=== PATIENT | male | born 1960 | race Caucasian/White ===

== ENCOUNTER 2021-10-13 11:04 | Emergency (ER) | payer MEDICARE, OTHER, SELFPAY ==
[2021-10-13 11:05] VITALS: BP 149/94; PULSE 109; RESP 27; TEMP 36.6; O2SAT 100; BMI 28.7
--- NOTE | 2021-10-13 11:10 | PC.NURSE ---
PATIENT SENT TO ER PER Nathan DYER APRN FOR FURTHER EVALUATION. REPORT GIVEN TO Nikia GONZALES RN BY Nathan DYER APRN
--- NOTE | 2021-10-13 11:25 | HMH.EDUTC ---
[facility] Disposition Clinical Impression: Gastroenteritis, Chest wall pain Disposition: Home, Self-Care Condition on Discharge: Good Instructions: DI for Viral Gastroenteritis -- Adult, DI for Atypical Chest Pain Additional Instructions: Additional instructions for VOMITING/DIARRHEA: See your physician as soon as possible for further evaluation. Return immediately if severe abdominal pain, uncontrollable vomiting, shortness of breath, fever, vomiting of blood or abdominal distention. Prescriptions: Ondansetron [Zofran 4mg ODT] 4 mg PO TIDP PRN #10 tab PRN Reason: Nausea And Vomiting Transmission Status: Received by [facility] Referrals: Jameel Bruce MD [Primary Care Provider] - Medical Decision Making - Dev Inquiry Pt receiving controlled substance: No Dev was queried for this patient: No Vital Signs: 10/13/21 11:05 10/13/21 12:30 10/13/21 13:00 Temperature 97.9 F Temperature Source Oral Pulse Rate 85 82 Pulse Rate [Right Brachial] 109 H Respiratory Rate 27 H 18 18 Blood Pressure 143/87 H 142/78 H Blood Pressure [Right Arm] 149/94 H Blood Pressure Mean 105 Blood Pressure Mean [Right Arm] 112 Blood Pressure Source Blood Pressure Source [Right Arm] Automatic Cuff Blood Pressure Position Blood Pressure Position [Right Arm] Sitting 02 Sat by Pulse Oximetry 100 98 100 Oxygen Delivery Method Room Air Room Air Room Air 10/13/21 14:10 Temperature 98.0 F Temperature Source Oral Pulse Rate 88 Pulse Rate [Right Brachial] Respiratory Rate 18 Blood Pressure 138/78 Blood Pressure [Right Arm] Blood Pressure Mean Blood Pressure Mean [Right Arm] Blood Pressure Source Automatic Cuff Blood Pressure Source [Right Arm] Blood Pressure Position Sitting Blood Pressure Position [Right Arm] 02 Sat by Pulse Oximetry Oxygen Delivery Method Room Air - Lab Data Lab Results 10/13/21 11:40: WBC 7.9, RBC 5.24, Hgb 17.7, Hct 51.7, MCV 98.6 H, MCH 33.8 H, MCHC 34.3, RDW 13.3, Plt Count 279, MPV 7.4, Neut % (Auto) 69.2, Lymph % (Auto) 21.9, [place] % (Auto) 6.6, Eos % (Auto) 1.8, Baso % (Auto) 0.5, Neut # (Auto) 5.5, Lymph # (Auto) 1.7, [place] # (Auto) 0.5, Eos # (Auto) 0.1, Baso # (Auto) 0.0 10/13/21 11:40: Sodium 135 L, Potassium 4.2, Chloride 101, Carbon Dioxide 23, Anion Gap 15.2 H, BUN 10, Creatinine 0.80, Estimated Creat Clear 100, Estimated GFR 98, Est GFR ( Amer) 119, Glucose 107 H, Calcium 10.0, Total Bilirubin 0.9, AST 32, ALT 20, Alkaline Phosphatase 75, Troponin I < 0.01, Total Protein 8.2, Albumin 4.7, Globulin 3.5 H, Albumin/Globulin Ratio 1.3, Lipase 50 10/13/21 12:00: SARS-CoV-2 (PCR) Not detected, Influenza A Untype (PCR) Not detected, Influenza Type B (PCR) Not detected Result diagrams: 10/13/21 11:40 10/13/21 11:40 Orders (Tests/Meds): ED MEDICATIONS Discontinued Medications Generic Name Dose Route Start Last Admin Trade Name Joe PRN Reason Stop Dose Admin Ondansetron HCl 4 mg 10/13/21 11:50 10/13/21 11:55 Ondansetron 4mg/2ml Vial IV 10/13/21 11:51 4 mg ONCE ONE Administration Sodium Chloride 1,000 ml 10/13/21 11:50 10/13/21 11:55 Sodium Chloride 0.9% 1000ml Bag IV 10/13/21 11:51 1,000 ml BOLUS ONE Administration Medical Decision Narrative: Patient diaphoretic sweating profusely slumped in chair State that he started feeling bad on Tuesday with Vomiting and diarrhea and has continued and having pain in his left side in rib area under his left arm but denies injury States that today he was sweating profusely and his shirt was soaked in sweat yesterday and he still was feeling bad today discussed with patient and due to symptoms recommended transfer to the ED for further work up and evaluation and patient agreed Called ED spoke with Nico BARTHOLOMEW and patient was moved to room 10 [facility] HPI - General Stated complaint: vomiting, diarrhea Time Seen by Provider: 10/13/21 11:25 Mode of Arrival: Ambulatory Source of
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
--- NOTE | 2021-10-13 11:53 | ECG_ITS ---
APPROVED REPORT Exam: Resting ECG HR:93 bpm ECG Measurements Heart Rate 93 AXES CO 176 P 49 QRSd 88 QRS 39 QT 362 T -6 QTc 450 Conclusion Normal sinus rhythm T wave abnormality, consider inferior ischemia Abnormal ECG Electronically signed by : Jameel Farnsworth MD 10/13/2021 20:59:21
[2021-10-13 12:00] LABS: Basophils % 0.5 % (0.1-2.0); Eosinophils # 0.1 K/mm3 (0.0-0.4); Eosinophils % 1.8 % (0.1-12.0); Hematocrit 51.7 % (42.0-52.0); Hemoglobin 17.7 g/dL (14.1-18.0); Lymphocytes # 1.7 K/mm3 (0.7-4.5); Lymphocytes % 21.9 % (10-50); Mean Corpuscular HGB Conc 34.3 g/dL (31.8-35.4); Mean Corpuscular Hemoglobin 33.8 pg (27.0-31.2); Mean Corpuscular Volume 98.6 fl (80-94); Mean Platelet Volume 7.4 fl (7.4-10.4); Monocytes # 0.5 K/mm3 (0.1-1.0); Monocytes % 6.6 % (1.7-9.3); Neutrophils # 5.5 K/mm3 (1.8-7.8); Neutrophils % 69.2 % (37.0-80.0); Platelet Count 279 K/mm3 (142-424); Red Blood Count 5.24 M/mm3 (4.60-6.20); Red Cell Distribution Width 13.3 % (11.5-17.5); White Blood Count 7.9 K/mm3 (4.8-10.8)
[2021-10-13 12:03] LABS: Chloride 101 mmol/L (98-107); Potassium 4.2 mmoL/L (3.5-5.1); Sodium 135 mmol/L (136-145)
[2021-10-13 12:04] LABS: Coronavirus 19, PCR Not Detected (NotDetected); Influenza A, PCR Not Detected (NotDetected); Influenza B, PCR Not Detected (NotDetected)
[2021-10-13 12:06] LABS: Alanine Aminotransferase 20 U/L (12-78); Albumin Level 4.7 g/dl (3.5-5.0); Albumin/Globulin Ratio 1.3 (1.1-1.8); Alkaline Phosphatase 75 U/L (38-126); Anion Gap 15.2 mEq/L (5-15); Aspartate Amino Transferase 32 U/L (17-59); Bilirubin,Total 0.9 mg/dl (0.2-1.3); Blood Urea Nitrogen 10 mg/dl (9-20); Carbon Dioxide 23 mmol/L (22.0-30.0); Creatinine Clearance Estimated 100 mL/min (50-200); Estimated Glomerular Filt Rate 98 ml/min (>60); GFR (African American) 119 ML/MIN (>60); Globulin 3.5 g/dL (1.3-3.2); Glucose 107 mg/dl (74-100); Lipase 50 U/L (23-300); Total Protein,Serum 8.2 g/dl (6.3-8.2)
[2021-10-13 12:21] LABS: Troponin I < 0.01 ng/ml (0.00-0.034)
[2021-10-13 12:30] VITALS: BP 143/87; PULSE 85; RESP 18; O2SAT 98
[2021-10-13 13:00] VITALS: BP 142/78; PULSE 82; RESP 18; O2SAT 100
[2021-10-13 14:10] VITALS: BP 138/78; PULSE 88; RESP 18; TEMP 36.7; O2SAT 98
== END 2021-10-13 14:15 | disposition home or self-care (01) ==
LOC: UTC 11:07 → ER 11:16
PROVIDERS: Emergency Provider Emergency Medicine; PCP Family Medicine
DX: K52.9 Noninfective gastroenteritis and colitis, unspecified (principal); R07.89 Other chest pain; Z20.822 Contact with and (suspected) exposure to COVID-19
CPT/HCPCS: 80053; 83690; 84484; 85025; 93005; 96374; 99283; C9803; J2405; U0003; U0005

== ENCOUNTER 2025-02-28 09:23 | Outpatient (CLI) | payer MEDICARE, OTHER, SELFPAY ==
[2025-02-28 18:49] LABS: Basophils # 0.1 K/mm3 (0-0.2); Basophils % 0.8 % (0.1-2.0); Eosinophils # 0.2 Kmm3 (0.0-0.4); Eosinophils % 2.7 % (0.1-12.0); Hematocrit 46.1 % (42.0-52.0); Hemoglobin 15.2 g/dL (14.1-18.0); Immature Granulocytes # 0.02 10^3uL; Immature Granulocytes % 0.3 %; Lymphocytes # 1.9 K/mm3 (0.7-4.5); Lymphocytes % 29.8 % (10-50); Mean Corpuscular Hemoglobin 32.4 pg (27.0-31.2); Mean Corpuscular Volume 98.3 fl (80-94); Mean Platelet Volume 9.7 fl (7.4-10.4); Monocytes # 0.5 K/mm3 (0.1-1.0); Monocytes % 8.7 % (1.7-9.3); Neutrophils # 3.6 K/mm3 (1.8-7.8); Neutrophils % 57.7 % (37.0-80.0); Nucleated Red Blood Cells # 0 10^3/uL; Nucleated Red Blood Cells % 0 %; Platelet Count 294 K/mm3 (142-424); Red Blood Count 4.69 M/mm3 (4.60-6.20); Red Cell Distribution Width 13.3 % (11.5-17.5); Red Cell Distribution Width-SD 48.5 fL; White Blood Count 6.2 K/mm3 (4.8-10.8)
[2025-02-28 19:24] LABS: Alanine Aminotransferase 12 U/L (12-78); Albumin Level 4.2 g/dl (3.5-5.0); Albumin/Globulin Ratio 1.6 (1.1-1.8); Alkaline Phosphatase 61 U/L (38-126); Anion Gap 7.1 mEq/L (5-15); Aspartate Amino Transferase 18 U/L (17-59); Bilirubin,Total 0.4 mg/dl (0.2-1.3); Blood Urea Nitrogen 7 mg/dl (9-20); Calcium 9.2 mg/dl (8.4-10.2); Carbon Dioxide 27 mmol/L (22.0-30.0); Chloride 105 mmol/L (98-107); Chol/HDL Ratio 4.3 (1-3.5); Cholesterol 187 mg/dl (140-200); Estimated Glomerular Filt Rate 85 ml/min (>60); GFR (African American) 103 ML/MIN (>60); Globulin 2.6 g/dL (1.3-3.2); Glucose 104 mg/dl (74-100); HDL Cholesterol 43 mg/dl (40-60); Potassium 4.1 mmoL/L (3.5-5.1); Sodium 135 mmol/L (136-145); Total Protein,Serum 6.8 g/dl (6.3-8.2); Triglycerides 89 mg/dl (30-150); VLDL Cholesterol 18 mg/dL (0-40)
[2025-02-28 19:38] LABS: Direct LDL Cholesterol 140.17 mg/dL (100-129)
[2025-02-28 19:51] LABS: 25-OH Vitamin D, Total 21.4 ng/mL (30-100)
[2025-02-28 19:53] LABS: Prostate Specific Ag Screen 0.6 ng/ml (0.0-4.0); Thyroid Stimulating Hormone 1.87 uIU/mL (0.465-4.68)
[2025-02-28 21:31] LABS: Hemoglobin A1C 5.4 % (4.0-6.0)
== END 2025-02-28 23:59 | disposition home or self-care (01) ==
LOC: LAB.DROPOF 03-01 13:08
PROVIDERS: PCP Family Medicine; Visit Provider Family Medicine
DX: Z76.89 Persons encountering health services in other specified circumstances (principal); M67.911 Unspecified disorder of synovium and tendon, right shoulder
CPT/HCPCS: 80053; 80061; 82306; 83036; 84443; 85025; G0103